=== PATIENT | female | born 1965 | race African-American/Black ===

== ENCOUNTER 2016-09-28 11:16 | Emergency (ER) | payer MEDICAID ==
[~2016-09-28] VITALS: Ht 175.3 cm; Wt 118.2 kg
[2016-09-28 11:36] VITALS: BP 130/79
== END 2016-09-28 13:33 | disposition left against medical advice (07) ==
LOC: EMS 11:17
DX: S09.90XA Unspecified injury of head, initial encounter (principal); W18.39XA Other fall on same level, initial encounter; Y93.89 Activity, other specified; Y92.89 Other specified places as the place of occurrence of the external cause; Y99.8 Other external cause status; Z53.21 Procedure and treatment not carried out due to patient leaving prior to being seen by health care provider

== ENCOUNTER 2017-03-20 09:48 | Emergency (ER) | payer SELFPAY ==
[~2017-03-20] VITALS: Ht 175.3 cm; Wt 112.7 kg
[2017-03-20] MEDS ORDERED: IBUPROFEN 600 MG TABLET PO ONE (11:30)
[2017-03-20 12:07] VITALS: BP 129/88
== END 2017-03-20 12:08 | disposition home or self-care (01) ==
LOC: EMS 09:51
DX: R51 Headache (principal); M54.5 Low back pain; V49.50XA Passenger injured in collision with unspecified motor vehicles in traffic accident, initial encounter; Y93.89 Activity, other specified; Y92.89 Other specified places as the place of occurrence of the external cause; Y99.8 Other external cause status
CPT/HCPCS: 99283

== ENCOUNTER 2017-05-07 19:05 | Emergency (ER) | payer OTHER ==
[~2017-05-07] VITALS: Ht 175.3 cm; Wt 109.1 kg
[2017-05-07] MEDS ORDERED: KETOROLAC TROMETHAMINE 60 MG/2 ML VIAL IM ONE (21:30)
[2017-05-08 01:05] VITALS: BP 127/79
== END 2017-05-08 01:07 | disposition home or self-care (01) ==
LOC: EMS 19:07
DX: S16.1XXA Strain of muscle, fascia and tendon at neck level, initial encounter (principal); S05.12XA Contusion of eyeball and orbital tissues, left eye, initial encounter; W50.0XXA Accidental hit or strike by another person, initial encounter; Y93.89 Activity, other specified; Y92.89 Other specified places as the place of occurrence of the external cause; Y99.8 Other external cause status
CPT/HCPCS: 70486; 96372; 99284; J1885

== ENCOUNTER 2017-08-02 04:42 | Emergency (ER) | payer OTHER ==
[~2017-08-02] VITALS: Ht 172.7 cm; Wt 127.3 kg
[2017-08-02 08:15] VITALS: BP 140/92
[2017-08-02] MEDS ORDERED: IBUPROFEN 600 MG TABLET PO ONE (08:15)
== END 2017-08-02 08:15 | disposition home or self-care (01) ==
LOC: EMS 04:43
DX: S05.12XA Contusion of eyeball and orbital tissues, left eye, initial encounter (principal); Y04.2XXA Assault by strike against or bumped into by another person, initial encounter; Y93.89 Activity, other specified; Y92.89 Other specified places as the place of occurrence of the external cause; Y99.8 Other external cause status
CPT/HCPCS: 70450; 70486; 99284